=== PATIENT | female | born 1955 | race African-American/Black ===

== ENCOUNTER → 2021-07-18 09:12 | Outpatient (CLI) | payer BC, SELFPAY ==
[2021-07-18 10:28] LABS: PTHIN 188.2 pg/mL (18.4-80.1)
[2021-07-18 10:31] LABS: T3 Total - Triiodothyronine 1.07 ng/mL (0.6-1.81)
[2021-07-18 10:37] LABS: Calcium,Total 9.4 mg/dL (8.5-10.1); Thyroid Stim Hormone (TSH) 0.89 uIU/mL (0.358-3.74)
[2021-07-19 14:04] LABS: Thyroid Peroxidase AB 16 IU/mL (0-34)
== END ==
PROVIDERS: PCP Family Medicine; Referring Provider Physician Assistant; Visit Provider Physician Assistant
DX: L80 Vitiligo (principal)
CPT/HCPCS: 36415; 82310; 83970; 84439; 84443; 84480; 86376

== ENCOUNTER 2022-01-11 10:00 | Emergency (ER) | payer MEDICARE, SELFPAY ==
[2022-01-11 10:01] VITALS: BP 156/87; PULSE 55; RESP 14; TEMP 36.2; O2SAT 98; BMI 34.1
--- NOTE | 2022-01-11 10:20 | EKG12_ITS ---
Test Reason : CP Blood Pressure : / mmHG Vent. Rate : 057 BPM Atrial Rate : 057 BPM P-R Int : 186 ms QRS Dur : 086 ms QT Int : 406 ms P-R-T Axes : 067 045 067 degrees QTc Int : 395 ms Sinus bradycardia Otherwise normal ECG Confirmed by EDUARDO PRATHER, FLII ([id number]), editorial writer JIM PEARSON ([id number]) on 01/13/2022 7:19:55 AM Referred By: PARESH Confirmed By:FAIZA CLARK MD
--- NOTE | 2022-01-11 10:21 | EDS_ITS ---
HPI History of Present Illness Chief Complaint: Chest Pain Narrative Narrative: Patient with past medical history of coronary artery disease, CABG x4 in 2007, hypertension, hypercholesterolemia presents with intermittent chest pain that she has had over the last few days. She presents from her primary care provider's office with report that its been going on for the past 2 weeks. She states she is currently pain-free. She only relates history that she had chest pain across her precordium on Sunday, 2 days ago. She is unsure how long it lasted. She denies any nausea or vomiting. No shortness of breath or diaphoresis. She does not follow-up with a cmv driver and has not for years. She denies any exacerbating or alleviating factors to her chest pain from 2 days ago. [facility] Medical History (Updated 01/11/22 @ 12:06 by Nakul Campo MD) Depression Hyperlipidemia Hypertension Home Medications Metoprolol Tartrate 25 mg PO BID 06/13/15 [History Last Taken 06/30/15 08:30 25] aspirin 81 mg PO DAILY@0800 06/13/15 [History Last Taken Unknown] sertraline 100 mg PO DAILY 06/13/15 [History Last Taken Unknown] amlodipine 1 tab PO DAILY 06/28/15 [History Last Taken Unknown] atorvastatin 10 mg PO QHS 06/28/15 [History Last Taken Unknown] lisinopril-hydrochlorothiazide [Zestoretic 20-12.5 mg Tablet] 1 ea PO BID 06/28/15 [History Last Taken Unknown] bupropion HCl 150 mg PO DAILY 01/11/22 [History Last Taken Unknown] Allergy/AdvReac Type Severity Reaction Status Date / Time No Known Allergies Allergy Verified 01/11/22 10:03 Surgical History (Updated 01/11/22 @ 10:35 by Monik Loredo) Hx of CABG Social History Smoking Status: Unknown if ever smoked ROS ROS ED ROS Narrative Constitutional: No fever, no chills. HEENT: No sore throat. No neck pain. No loss of vision. No rhinorrhea. Cardiovascular: Positive chest pain-resolved. No palpitations. No pedal edema. Respiratory: No cough, no shortness of breath. Abdominal: No abdominal pain. No nausea. No vomiting. Genitourinary: No dysuria. No hematuria. Musculoskeletal: No myalgias. No arthralgias. Neurologic: No headaches. No dizziness. No lightheadedness. Skin: No rash. No change in color. Psychiatric: No depression. No anxiety. EXAM Physical Exam Narrative Exam Narrative: Afebrile. Vital signs noted. HEENT: Normocephalic. Atraumatic. PERRL, EOMI. Neck soft and supple. No point tenderness or step off. Cardiovascular: Regular rate and rhythm. No murmurs, rubs, or gallops appreciated. Respiratory: No tachypnea. Lungs clear to auscultation bilaterally. Gastrointestinal: Abdomen soft, nontender, with normoactive bowel sounds. No rebound or guarding. Neurological: Awake. Alert. Nonfocal, nonlateralizing. Skin: No rash. Normal color. No pallor. Musculoskeletal: No pedal edema. Full range of motion extremities. Const Vital Signs: 01/11/22 10:01 01/11/22 10:23 01/11/22 10:36 Temperature 97.2 F L Temperature Source Temporal Pulse Rate 55 L Respiratory Rate 14 Respiratory Effort Normal Respiratory Pattern Normal Blood Pressure 156/87 H Blood Pressure Mean 110 Pulse Ox 98 Oxygen Delivery Method Room Air Room Air 01/11/22 12:01 Temperature Temperature Source Pulse Rate 69 Respiratory Rate 17 Respiratory Effort Respiratory Pattern Blood Pressure 139/78 H Blood Pressure Mean 98 Pulse Ox 96 Oxygen Delivery Method Room Air Heart Score History: Slightly/Non-Suspicious ECG: Normal Age: >/= 65 years Risk Factors: >/= 3 Risk Factors or History of CAD Score: 4 MDM MDM MDM Narrative Medical decision making narrative: Chest pain work-up was pursued. Her EKG demonstrates normal sinus bradycardia at 57 bpm without ectopy or acute ST changes. She does have T wave inversion in V2. She takes baby aspirin on a daily basis. She is currently pain-free. I do feel that she would more than likely be able to be ruled out by biomarkers as this would be more than a 6-hour troponin. I did visualize an EKG from 2008 she did have T wave inversions in V1 and V2 as she does today. Chest x-ray as interpreted by myself shows no acute process, no pneumothorax or infiltrate. She has a white count of 4.1 which is low but normal hemoglobin of 12.2, normal platelet count of 242. Her electrolyte panel shows chloride elevated at 110 with a creatinine of 1.18 but this is a chronic kidney injury. Glucose appropriately elevated at 109 with a normal anion gap if not slightly low at 4. Her high-sensitivity troponin is normal at 5. She is pain-free and has not had chest pain since Sunday. I was able to speak with her primary care provider, Dr. Tarango. Patient is to follow-up with a new cmv driver and her primary care physician. I feel she be discharged safely home with follow-up. Return instructions were reviewed. Disposition is discharged home in stable condition. Lab Data Attestation: I reviewed the patient's lab results. Labs: Laboratory Results - last 24 hr 01/11/22 01/11/22 10:10 10:10 WBC 4.1 L RBC 4.35 Hgb 12.2 Hct 37.9 MCV 87.1 MCH 28.0 MCHC 32.2 RDW Std Deviation 42.1 RDW Coeff of [place] 13.2 Plt Count 242 MPV 10.3 Immature Gran % (Auto) 0.200 Neut % (Auto) 48.1 Lymph % (Auto) 38.4 [place] % (Auto) 7.5 Eos % (Auto) 4.6 Baso % (Auto) 1.2 H Absolute Neuts (auto) 2.0 Absolute Lymphs (auto) 1.59 Nucleated RBC % 0 Sodium 141 Potassium 4.0 Chloride 110 H Carbon Dioxide 27.0 Anion Gap 4 L BUN 8 Creatinine 1.18 H Estim Creat Clear Calc 41.63 Est GFR (MDRD) Af Amer 59 L Est GFR (MDRD) Non-Af 49 L BUN/Creatinine Ratio 6.8 L Glucose 109 H Calcium 9.6 Troponin I High Sens 5 Radiography Diagnostic Testing: Clinical Impression(s) from Imaging Studies Chest X-Ray 01/11/22 10:35 IMPRESSION: No radiographic evidence of acute cardiopulmonary disease. No interval change. at 1103 Reported and signed by: Tyler Roche MD Electronically Signed: Tyler Roche MD at 11:02 EDT , Discharge Plan Triage Chief Complaint: Chest Pain ED Provider: Nakul Campo Dx/Rx/DC Orders Clinical Impression: Chest pain Instructions: ED Chest Pain, Uncertain Cause Prescriptions: No Action sertraline 100 MG tablet 100 mg PO DAILY RF: 0 aspirin 81 MG tablet,chewable 81 mg PO DAILY@0800 RF: 0 Metoprolol Tartrate 25 mg PO BID RF: 0 atorvastatin 10 MG tablet 10 mg PO QHS RF: 0 lisinopril-hydrochlorothiazide [Zestoretic] 1 EACH tablet 1 ea PO BID RF: 0 amlodipine 10 MG tablet 1 tab PO DAILY RF: 0 bupropion HCl 150 mg tablet extended release 24 hr 150 mg PO DAILY RF: 0 Primary Care Provider: Maria Del Carmen Tarango Referrals: Maria Del Carmen Tarango MD [Primary Care Provider] - 1-2 Days if not improving Activity Restrictions/Additional Instructions: Follow-up with a cmv driver as soon as possible. Disposition Disposition: Home, Self Care
[2022-01-11] MEDS: Aspirin 81 MG TAB.CHEW 324 MG PO (10:24)
[2022-01-11 10:29] LABS: Absolute Lymphocyte Count 1.59 X10^3/uL (0.83-4.51); Basophil# 0.05 X10^3/uL; Basophil% 1.2 % (0-1); Eosinophil# 0.19 X10^3/uL; Eosinophils% 4.6 % (0-5); Hematocrit 37.9 % (37-47); Hemoglobin 12.2 g/dL (12.0-15.0); Lymphocyte # 1.59 X10^3/ul (0.83-4.51); Lymphocyte % 38.4 % (19-41); Mean Corp Hgb Conc 32.2 g/dL (32-36); Mean Corpuscular Volume 87.1 fL (81-99); Mean Platelet Vol. 10.3 fl (6.2-12.0); Monocyte# 0.31 X10^3/uL; Monocyte% 7.5 % (0-10); NRBC Flagged by Analyzer 0 % (0-5); Neutrophil # 1.99 X10^3/uL (2.7-7.7); Neutrophil % 48.1 % (47-70); Platelet Count 242 K/mm3 (150-450); RBC Distribution Width CV 13.2 % (11.6-14.6); RBC Distribution Width SD 42.1 fl (35.1-43.9); Red Blood Count 4.35 M/mm3 (4.2-5.4); White Blood Count 4.1 K/mm3 (4.4-11.0)
--- NOTE | 2022-01-11 10:35 | RAD_ITS ---
History: chest pain EXAMINATION/TECHNIQUE: XR Chest 1 View: Portable COMPARISON: November 14, 2013 FINDINGS: LINES/DEVICES: None. LUNGS: No consolidation, edema or effusion. No pneumothorax. MEDIASTINUM AND CARDIOVASCULAR STRUCTURES: Cardiac silhouette not enlarged. Central airways and mediastinal contour are unremarkable. Sternotomy wires and mediastinal clips noted consistent with changes of CABG. BONES AND SOFT TISSUES: Unremarkable. RAD/Chest 1 View (Portable) IMPRESSION: No radiographic evidence of acute cardiopulmonary disease. No interval change. at 1103 Reported and signed by: Tyler Roche MD Electronically Signed: Tyler Roche MD at 11:02 EDT ,
[2022-01-11 10:56] LABS: Anion Gap 4 (5-15); BUN 8 mg/dL (7-18); BUN/Creat Ratio 6.8 RATIO (10-20); Calcium,Total 9.6 mg/dL (8.5-10.1); Chloride 110 mmol/L (98-107); Creatinine, Serum 1.18 mg/dL (0.55-1.02); EST Glomerular Filtration Rate 49 mL/min (>60); Est Glom Filt Rate - Afr Amer 59 mL/min (>60); Estimated Creatinine Clearance 41.63 ml/min; Glucose 109 mg/dL (74-106); Sodium Level 141 mmol/L (136-145); Troponin-I HS 5 pg/mL (3.0-54.0)
[2022-01-11 12:01] VITALS: BP 139/78; PULSE 69; RESP 17; O2SAT 96
[2022-01-11 12:20] VITALS: BP 139/78; PULSE 69; RESP 16; O2SAT 99
== END 2022-01-11 12:21 | disposition home or self-care (01) ==
PROVIDERS: Emergency Provider Emergency Medicine; PCP Internal Medicine; Visit Provider Emergency Medicine
DX: R07.9 Chest pain, unspecified (principal); R00.1 Bradycardia, unspecified; I10 Essential (primary) hypertension; E78.00 Pure hypercholesterolemia, unspecified; I25.10 Atherosclerotic heart disease of native coronary artery without angina pectoris; E78.5 Hyperlipidemia, unspecified; Z79.82 Long term (current) use of aspirin; Z79.899 Other long term (current) drug therapy; Z95.1 Presence of aortocoronary bypass graft
CPT/HCPCS: 71045; 80048; 84484; 85025; 93005; 99285; A4216

== ENCOUNTER → 2022-04-12 | Outpatient (CLI) | payer MEDICARE, SELFPAY ==
--- NOTE | 2022-04-12 14:35 | NEURO_ITS ---
NCS and/or EMG Patient Report Ordering Doctor: Génesis Woo NP DATE OF SERVICE: 04/12/22 Herlinda presents for electrodiagnostic testing of the right upper limb she reports pain in the right wrist with intermittent numbness in the hand. Electrodiagnostic findings: Right median motor nerve demonstrates normal distal latency and amplitude with borderline reduced conduction velocity. Normal right ulnar motor response, including conduction across the elbow. Median and ulnar ulnar sensory responses are normal. Normal right radial sensory response. On needle EMG, all muscles tested in the right upper limb showed no evidence of denervation with normal motor unit action potentials. Electrodiagnostic impression: This is a normal electrodiagnostic study of the right upper limb. There is no electrodiagnostic evidence for peripheral neuropathy including carpal tunnel or cubital tunnel syndrome. There is no anupam ctrodiagnostic evidence for cervical radiculopathy.
== END | disposition home or self-care (01) ==
LOC: PSN 13:09
PROVIDERS: PCP Internal Medicine; Referring Provider Nurse Practitioner; Visit Provider Nurse Practitioner
DX: M25.531 Pain in right wrist (principal); R20.0 Anesthesia of skin; R20.2 Paresthesia of skin
CPT/HCPCS: 95886; 95910

== ENCOUNTER → 2022-04-18 | Outpatient (CLI) | payer MEDICARE, SELFPAY | END | disposition home or self-care (01) | PROVIDERS: PCP Internal Medicine; Referring Provider Psychiatry & Neurology Sleep Medicine; Visit Provider Psychiatry & Neurology Sleep Medicine | DX: G47.33 Obstructive sleep apnea (adult) (pediatric) (principal) | CPT/HCPCS: 95811 ==

== ENCOUNTER 2023-07-24 12:03 | Emergency (ER) | payer MEDICARE, MEDICAID, SELFPAY ==
[2023-07-24 12:04] VITALS: BP 142/69; PULSE 94; RESP 20; TEMP 36.2; O2SAT 95; BMI 36.6
--- NOTE | 2023-07-24 12:30 | EDS_ITS ---
HPI HPI - URI History of Present Illness Chief Complaint: Cold Sx Informant: patient Onset/Context/Timing Onset: Days Context: Gradual Onset Timing: Continuous Current Severity: Mild Maximum Severity: Mild Associated Symptoms Associated Symptoms: Positive for Nasal Congestion, Myalgias and Productive Cough Narrative Narrative: 67-year-old female history of CABG, hypertension and chronic kidney disease. URI type symptoms for the last 3 days. Productive cough of clear sputum. No chest pain. No hemoptysis. No shortness of breath. No one else at home is currently ill. Prior similar symptoms: Yes Recent Illness/Hospitalization: No ROS ROS ED ROS Narrative Productive cough. Body aches. Review of Systems ROS Unobtainable: Denies due to encephalopathy Constitutional Constitutional ED: Denies chills or fever(s) Eyes Eyes: Denies blurry vision Cardiovascular Cardiovascular: Denies chest pain Respiratory/Chest Respiratory/Chest: Reports cough; Denies dyspnea or dyspnea on exertion Gastrointestinal Gastrointestinal: Denies abdominal pain, constipation, diarrhea, melena, nausea or vomiting Genitourinary Genitourinary ED: Denies dysuria or hematuria Musculoskeletal Musculoskeletal: Reports myalgias; Denies arthralgias Integumentary Denies abscess Neurologic Neurologic: Denies headache(s) Psychiatric Psychiatric: Denies anxiety Endocrine Endocrinology: Denies cold intolerance Hematologic/Lymphatic Hematologic/Lymphatic: Denies easy bleeding or easy bruising Allergic/Immunologic Allergic/Immunologic ED: Denies mouth swelling or tongue swelling PFSH [facility] Medical History Atherosclerosis of coronary artery of [place] heart without angina pectoris Depression Dysthymic disorder Essential hypertension Glaucoma Goiter Hyperlipidemia IBS (irritable bowel syndrome) Kidney disease JEFRY treated with BiPAP Home Medications aspirin 81 mg chewable tablet 81 mg PO DAILY@0800 06/13/15 [History Last Taken Unknown] sertraline 100 mg tablet 100 mg PO DAILY 06/13/15 [History Last Taken Unknown] amlodipine 10 mg tablet 1 tab PO DAILY 06/28/15 [History Last Taken Unknown] bupropion HCl 150 mg 24 hr tablet, extended release 150 mg PO DAILY 01/11/22 [History Last Taken Unknown] atorvastatin 20 mg tablet 20 mg PO QHS 02/12/23 [History Last Taken Unknown] metoprolol tartrate 50 mg tablet 25 mg PO BID 02/12/23 [History Last Taken Unknown] nitroglycerin 0.4 mg sublingual tablet 0.4 mg sublingual Q5-15M PRN chest pain 02/12/23 [History Last Taken Unknown] Allergy/AdvReac Type Severity Reaction Status Date / Time No Known Allergies Allergy Verified 03/28/23 13:22 Family History Mother CVA (cerebral vascular accident) Diabetes Father Diabetes Sister Psoriasis Brain cancer Brother Cancer Diabetes Heart disease Surgical History History of coronary artery bypass surgery (~10/18/08) History of esophagogastroduodenoscopy (EGD) History of left heart catheterization (~10/14/08) History of tubal ligation Social History household members: none housing: house Smoking Status: Former smoker how long ago did patient quit smokin alcohol intake: never substance use type: does not use EXAM Physical Exam Narrative Exam Narrative: 67-year-old female. Vital signs stable afebrile. Pulse ox 95% on room air no hypoxia. HEENT exam unremarkable. Moist mucous veins. Neck nontender no lymphadenopathy. Lungs clear to auscultation bilaterally. No rales, rhonchi or wheezing. Heart regular rate and rhythm no murmur. Abdomen soft nontender. No peritoneal signs. Moving all 4 extremities. Nontender no edema. She is awake and alert. Const Vital Signs: 07/24/23 12:04 07/24/23 12:10 Temperature 97.1 F L Temperature Source Temporal Pulse Rate 94 Respiratory Rate 20 H Respiratory Effort Normal Respiratory Pattern Normal Blood Pressure 142/69 H Blood Pressure Mean 93 Pulse Ox 95 Positive well nourished and well developed; Negative for cachectic or contractures General Appearance ED: well developed and NAD; Negative for cachectic, contractures, cyanotic, diaphoretic or pallor Nutritional Appearance: Negative for cachectic HEENT Reports moist mucous membranes; Denies dry mucous membranes normocephalic and atraumatic; Negative for scalp tenderness Face and Sinus: Negative for sinus tenderness Mouth ED: No dry mucous membranes Mouth: No dry mucous membranes Throat: posterior oropharynx normal Eyes PERRL and EOMs intact bilaterally General Eye ED: Negative for pale conjunctiva or scleral icterus Neck supple, no meningeal signs and no JVD General: Negative for anterior neck swelling or lymphadenopathy Resp normal respiratory effort and clear to auscultation bilaterally Effort and Inspection: Negative for retractions Auscultation: Negative for rales, rhonchi, wheezes or diminished lung sounds Cardio S1 normal heart sound, S2 normal heart sound and no murmurs Rate: regular rate Rhythm: regular rhythm GI non-distended and no masses Inspection: Negative for abdominal distention Auscultation: normoactive bowel sounds Palpation: soft; Negative for tender or guarding Back/Spine no CVA tenderness General Back: Negative for CVA tenderness Cervical Spine: Negative for cervical spine tenderness Thoracic Spine / Upper Back: Negative for thoracic spinal tenderness Lumbar Spine / Lower Back: Negative for lumbar spinal tenderness Sacrum: Negative for tenderness Extremity normal to inspection and full ROM General Extremety ED: Negative for cyanosis or tenderness General Extremity: Negative for cyanosis Neuro oriented x3, CN's II-XII intact bilaterally and no sensory deficits noted Sensorium / Orientation: alert, oriented to person, oriented to place and oriented to time; Negative for orientation impaired, lethargic or stuporous Sensory Exam: No sensory level loss detected Motor Exam: strength 5/5 throughout; Negative for general weakness Psych mental status grossly normal Appearance: Negative for other Attitude: No agitated Mood & Affect: Negative for depressed, anxious or tearful Skin General Skin Exam: Negative for jaundice or pallor Rashes: no rashes Trauma: Negative for abrasion or laceration MDM MDM MDM Narrative Medical decision making narrative: 67-year-old female URI symptoms. Clinically appears to be viral. I do not think there is any need for chest x-ray. She has stable vital signs and her lungs are clear. We discussed the possibility of this being COVID and I see no reason to test her and she is comfortable with that. Symptomatic treatment with Tylenol and fluids. Follow-up if not improving or return if worse. History & Record Review Discussion w/independent historian: Patient and Family Discharge Plan Triage Chief Complaint: Cold Sx ED Provider: Jony Terry Dx/Rx/DC Orders Clinical Impression: Viral URI Instructions: ED URI, Viral, No Abx (Adult) Prescriptions: No Action atorvastatin 20 mg tablet 20 mg PO QHS metoprolol tartrate 50 mg tablet 25 mg PO BID nitroglycerin 0.4 mg tablet, sublingual 0.4 mg sublingual Q5-15M PRN (Reason: chest pain) sertraline 100 MG tablet 100 mg PO DAILY aspirin 81 MG tablet,chewable 81 mg PO DAILY@0800 amlodipine 10 MG tablet 1 tab PO DAILY Patient Comments: bupropion HCl 150 mg tablet extended release 24 hr 150 mg PO DAILY Primary Care Provider: Maria Del Carmen Tarango Referrals: Maria Del Caremn Tarango MD [Primary Care Provider] - 1 Week if not improving Activity Restrictions/Additional Instructions: Plenty of fluids and rest. Tylenol for any fever or body aches. Return or follow-up with your doctor if you are not improving or feeling worse. Disposition Disposition: Home, Self Care
[2023-07-24 12:39] VITALS: RESP 20
== END 2023-07-24 12:47 | disposition home or self-care (01) ==
LOC: ED 12:43
PROVIDERS: Emergency Provider Emergency Medicine; PCP Internal Medicine; Visit Provider Emergency Medicine
DX: J06.9 Acute upper respiratory infection, unspecified (principal); I12.9 Hypertensive chronic kidney disease with stage 1 through stage 4 chronic kidney disease, or unspecified chronic kidney disease; N18.9 Chronic kidney disease, unspecified; I25.10 Atherosclerotic heart disease of native coronary artery without angina pectoris; E78.5 Hyperlipidemia, unspecified; G47.33 Obstructive sleep apnea (adult) (pediatric); Z79.82 Long term (current) use of aspirin; Z79.899 Other long term (current) drug therapy; Z87.891 Personal history of nicotine dependence; Z95.1 Presence of aortocoronary bypass graft
CPT/HCPCS: 99282

== ENCOUNTER 2024-08-03 14:33 | Emergency (ER) | payer MEDICARE, MEDICAID, SELFPAY ==
[2024-08-03 14:34] VITALS: BP 137/78; PULSE 64; RESP 14; TEMP 36.6; O2SAT 99
--- NOTE | 2024-08-03 14:52 | RAD_ITS ---
STUDY: X-RAY - LEFT KNEE REASON FOR EXAM: Female, 68 years old. Pain, decreased range of motion TECHNIQUE: 4 view(s) of the knee. COMPARISON: None. FINDINGS: Normal visualized distal femur. Normal visualized proximal tibia and fibula. Normal proximal tibiofibular articulation. There is mild degenerative arthrosis of the medial femorotibial compartment. Normal lateral femorotibial compartment. Normal patellofemoral articulation. The soft tissue structures are unremarkable. RAD/Knee 4 or More Views IMPRESSION: Medial compartment arthrosis Electronically Signed: Nate Westbrook MD at 15:17 EDT ,
--- NOTE | 2024-08-03 15:28 | ED.VIS.LOWEX ---
HPI History of Present Illness Chief Complaint: Lower Extremity Injury Detail of Chief Complaint: Atraumatic left knee pain for the past several days. Informant: patient Occured/Mechanism Comment: Atraumatic knee pain, complains of swelling Onset/Context/Timing Onset: Days Context: Sudden Onset Timing: Continuous Quality of Pain: Aching Location: Left knee Current Severity: Mild Maximum Severity: Moderate Worsened by: Walking, weightbearing Relieved by: Nothing Associated Symptoms Associated Symptoms: Negative for Parasthesia, Weakness or Loss of Funtion Narrative Narrative: Patient is a 68-year-old woman. She has history of obstructive sleep apnea, coronary disease, essential hypertension, hyperlipidemia status post bypass surgery September 2008 who presents with atraumatic left knee pain. She denies history of gout or pseudogout. She denies paresthesia, anesthesia or motor weakness. She denies fever or chills. She denies recent dental procedure. She denies prior problems with the left knee. She denies symptoms of claudication. Prior similar symptoms: No Recent Illness/Hospitalization: No PFSH PFSH Medical History Kidney disease Dysthymic disorder Goiter IBS (irritable bowel syndrome) JEFRY treated with BiPAP Glaucoma Atherosclerosis of coronary artery of [place] heart without angina pectoris Essential hypertension Hyperlipidemia Depression Home Medications ?Medication ?Instructions ?Recorded ?Last Taken ?Type aspirin 81 mg chewable tablet 81 mg PO DAILY@0800 06/13/15 Unknown History sertraline 100 mg tablet 100 mg PO DAILY 06/13/15 Unknown History amlodipine 10 mg tablet 1 tab PO DAILY 06/28/15 Unknown History bupropion HCl 150 mg 24 hr tablet, 150 mg PO DAILY 01/11/22 Unknown History extended release atorvastatin 20 mg tablet 20 mg PO QHS 02/12/23 Unknown History metoprolol tartrate 50 mg tablet 25 mg PO BID 02/12/23 Unknown History nitroglycerin 0.4 mg sublingual 0.4 mg sublingual Q5-15M PRN chest 02/12/23 Unknown History tablet pain ibuprofen 600 mg tablet 600 mg PO Q6H PRN #20 TABLETS 08/03/24 Unknown Rx Allergy/AdvReac Type Severity Reaction Status Date / Time No Known Allergies Allergy Verified 08/03/24 14:33 Family History Mother CVA (cerebral vascular accident) Diabetes Father Diabetes Sister Psoriasis Brain cancer Brother Cancer Diabetes Heart disease Surgical History History of tubal ligation History of esophagogastroduodenoscopy (EGD) History of left heart catheterization (~10/14/08) History of coronary artery bypass surgery (~10/18/08) Social History household members: none housing: house Smoking Status: Never smoker how long ago did patient quit smokin alcohol intake: never substance use type: does not use ROS ROS ED Constitutional Constitutional ED: Denies chills, fever(s), subjective or sweats Eyes Eyes: Denies blurry vision, change in vision or diplopia Cardiovascular Cardiovascular: Denies chest pain Respiratory/Chest Respiratory/Chest: Denies cough or dyspnea Gastrointestinal Gastrointestinal: Denies nausea or vomiting Genitourinary Genitourinary ED: Denies dysuria, hematuria or urinary frequency Musculoskeletal Musculoskeletal: Reports other Details: Left knee pain with swelling ; Denies arthralgias, back pain, myalgias or neck pain Integumentary Denies rash Neurologic Neurologic: Denies paresthesias or weakness Hematologic/Lymphatic Hematologic/Lymphatic: Denies easy bleeding or easy bruising EXAM Physical Exam Const Vital Signs: 08/03/24 14:34 Temperature 98 F Temperature Source Temporal Pulse Rate 64 Respiratory Rate 14 Blood Pressure 137/78 H Blood Pressure Mean 97 Pulse Ox 99 Oxygen Delivery Method Room Air Positive well nourished and well developed Constitutional Narrative: BMI greater than 30 General Appearance ED: well developed and NAD HEENT normocephalic and atraumatic Eyes PERRL Eyes Narrative: Extract muscles intact. Sclera is anicteric. Resp normal respiratory effort Cardio regular rate and regular rhythm Extremity Negative for normal to inspection or full ROM Extremity Narrative: The left knee is swollen compared to the right. There is no obvious effusion clinically. The patellas not blottable. Patient has pain with varus valgus stress testing; however, there is no laxity. There is no laxity with Geeta's test or click with modified Sandy's test. Patient had pain with both maneuvers. Patient is able to extend and hold against gravity to 180 degrees. She able to flex to about 100 degrees. There is no mass or fullness in the popliteal fossa. DP and PT pulse are palpable. There is no erythema of the skin or warmth. General Extremety ED: Yes weight-bearing difficulty General Extremity: weight-bearing difficulty Neuro oriented x3, CN's II-XII intact bilaterally and moves all extremities Sensorium / Orientation: alert Motor Exam: strength 5/5 throughout Psych mental status grossly normal Skin no wounds Lesions: no lesions Rashes: no rashes MDM MDM MDM Narrative Medical decision making narrative: Differential diagnosis would include crystal induced monoarticular arthritis, pyogenic monoarticular arthritis, osteoarthritis. Will obtain x-ray of the knee. Radiography Chest X-Ray - ED: Read by ED Physician (4 view x-ray of the left knee was independent reviewed interpreted by me at 1527 as negative for any acute pathology. There is evidence of degenerative arthritis. There is no evidence of fracture, subluxation dislocation or free body in the joint. There is no evidence of atherosclerotic changes i) Treatment and Re-Evaluation Narrative: Patient was informed of her results. Patient does not have prior problems with knee and has not seen an orthopedic surgeon. She was referred to Dr. Robison who is on-call. Discharge Plan Triage Chief Complaint: Lower Extremity Injury ED Provider: Ang Flood Dx/Rx/DC Orders Clinical Impression: Osteoarthritis of left knee, JEFRY treated with BiPAP, Hyperlipidemia, Essential hypertension, Difficulty in walking, History of coronary artery disease Instructions: Arthritis: Exercise, Osteoarthritis Knee Prescriptions: New ibuprofen 600 mg tablet 600 mg PO Q6H PRN Qty: 20 0RF No Action atorvastatin 20 mg tablet 20 mg PO QHS metoprolol tartrate 50 mg tablet 25 mg PO BID nitroglycerin 0.4 mg tablet, sublingual 0.4 mg sublingual Q5-15M PRN (Reason: chest pain) sertraline 100 MG tablet 100 mg PO DAILY aspirin 81 MG tablet,chewable 81 mg PO DAILY@0800 amlodipine 10 MG tablet 1 tab PO DAILY Patient Comments: bupropion HCl 150 mg tablet extended release 24 hr 150 mg PO DAILY Primary Care Provider: Maria Del Carmen Tarango Referrals: Maria Del Carmen Tarango MD [Primary Care Provider] - Segun Robison MD [Med Staff - Active Staff] - 1 Week Print Language: Vietnamese Disposition Disposition: Home, Self Care
[2024-08-03] MEDS: Ibuprofen 600 MG Tablet PO (16:11)
== END 2024-08-03 16:42 | disposition home or self-care (01) ==
PROVIDERS: Emergency Provider Emergency Medicine; PCP Internal Medicine; Visit Provider Emergency Medicine
DX: M17.12 Unilateral primary osteoarthritis, left knee (principal); R26.2 Difficulty in walking, not elsewhere classified; G47.33 Obstructive sleep apnea (adult) (pediatric); I10 Essential (primary) hypertension; E78.5 Hyperlipidemia, unspecified; I25.10 Atherosclerotic heart disease of native coronary artery without angina pectoris; Z79.82 Long term (current) use of aspirin; Z79.899 Other long term (current) drug therapy; Z95.1 Presence of aortocoronary bypass graft
CPT/HCPCS: 73564; 99282

== ENCOUNTER 2025-03-25 16:34 | Emergency (ER) | payer MEDICARE, MEDICAID, SELFPAY ==
[2025-03-25 16:35] VITALS: BP 144/70; PULSE 69; RESP 15; TEMP 35.7; O2SAT 97; BMI 37.0
--- NOTE | 2025-03-25 17:23 | CT_ITS ---
PROCEDURE: BRAIN/HEAD WITHOUT CONTRAST 03/25/2025 REASON FOR EXAM: INJURY TECHNIQUE: Head CT without intravenous contrast. Coronal and Sagittal reconstruction series were provided. One or more dose reduction techniques were used (e.g., Automated exposure control, adjustment of the mA and/or kV according to patient size, use of iterative reconstruction technique. RADIATION DOSE SUMMARY: CTDlvol: 44.99 mGy DLP: 779.24 mGycm COMPARISON: None. FINDINGS: Brain: Low density in the periventricular white matter suggests mild chronic small vessel ischemic changes. No evidence of acute hemorrhage or infarction. CSF Spaces: Moderate generalized cerebral atrophy Sinuses/Mastoids: Clear at visualized levels Bones: No evidence of acute skull fracture. Soft tissue swelling overlying the left frontal bone. Absent tunica-biloxi ocular lenses. CT/Brain/Head without Contrast IMPRESSION: NO ACUTE INTRACRANIAL FINDINGS Soft tissue swelling overlying the left frontal bone. Reading Location: [place] [id number]
--- NOTE | 2025-03-25 17:37 | RAD_ITS ---
PROCEDURE: WRIST MIN 3 VIEWS 03/25/2025 REASON FOR EXAM: INJURY TECHNIQUE: 3 view(s) of the left wrist COMPARISON: None FINDINGS: Bones: No visible fracture. No suspicious bone lesion. Joints: Normal alignment. Soft tissues: Soft tissues are unremarkable. Other: RAD/Wrist min 3 Views IMPRESSION: NO ACUTE FRACTURE OR DISLOCATION. If acute hand or wrist trauma is suspected an d initial radiographs are negative or equivocal repeat radiographs in 10-14 days MRI without IV contrast or CT without IV contr ast is usually appropriate as the next imaging study. (ACR Appropriateness Criteria: Acute Hand and Wrist Trauma 2018) Reading Location: [facility]
--- NOTE | 2025-03-25 17:39 | ED.VIS.FALL ---
HPI HPI - Fall History of Present Illness Chief Complaint: Fall Informant: patient and family (Mother) Narrative Narrative: 69-year-old female presenting to the emergency room with head and left wrist injury following a fall. Patient states that she was in [place] at a family's preschool graduation. She states that she tripped on an elevated piece of concrete causing her to fall forward. She notes pain in the left wrist with some swelling when she moves it. She notes hematoma to her forehead and abrasion. No reported loss of consciousness. She notes she ripped her pants around the left knee. She denies any leg symptomology. She denies any neck or back discomfort/pain. No nausea vomiting. She is not on any blood thinners. She does note a baby aspirin therapy. [facility] Medical History Kidney disease Dysthymic disorder Goiter IBS (irritable bowel syndrome) JEFRY treated with BiPAP Glaucoma Atherosclerosis of coronary artery of [place] heart without angina pectoris Essential hypertension Hyperlipidemia Depression Home Medications ?Medication ?Instructions ?Recorded ?Last Taken ?Type aspirin 81 mg chewable tablet 81 mg PO DAILY@0800 06/13/15 Unknown History sertraline 100 mg tablet 100 mg PO DAILY 06/13/15 Unknown History amlodipine 10 mg tablet 1 tab PO DAILY 06/28/15 Unknown History bupropion HCl 150 mg 24 hr tablet, 150 mg PO DAILY 01/11/22 Unknown History extended release atorvastatin 20 mg tablet 20 mg PO QHS 02/12/23 Unknown History metoprolol tartrate 50 mg tablet 25 mg PO BID 02/12/23 Unknown History nitroglycerin 0.4 mg sublingual 0.4 mg sublingual Q5-15M PRN chest 02/12/23 Unknown History tablet pain ibuprofen 600 mg tablet 600 mg PO Q6H PRN #20 TABLETS 08/03/24 Unknown Rx Allergy/AdvReac Type Severity Reaction Status Date / Time No Known Allergies Allergy Verified 03/25/25 16:35 Family History Mother CVA (cerebral vascular accident) Diabetes Father Diabetes Sister Psoriasis Brain cancer Brother Cancer Diabetes Heart disease Surgical History History of tubal ligation History of esophagogastroduodenoscopy (EGD) History of left heart catheterization (~10/14/08) History of coronary artery bypass surgery (~10/18/08) Social History household members: none housing: house Smoking Status: Never smoker how long ago did patient quit smokin alcohol intake: never substance use type: does not use ROS ROS ED Constitutional Constitutional ED: Denies chills or weight loss Eyes Eyes: Denies change in vision or diplopia ENT ENT ED: Denies ear pain, rhinorrhea or sore throat Cardiovascular Cardiovascular: Denies chest pain, orthopnea, palpitations or racing heartbeat Respiratory/Chest Respiratory/Chest: Denies cough, dyspnea or orthopnea Gastrointestinal Gastrointestinal: Denies abdominal pain, diarrhea, nausea or vomiting Genitourinary Genitourinary ED: Denies dysuria, hematuria or urinary frequency Musculoskeletal Musculoskeletal: Reports other Details: Left wrist pain swelling ; Denies arthralgias, back pain, myalgias or neck pain Integumentary Reports Abrasions and other Details: Hematoma ; Denies abscess or rash Neurologic Neurologic: Denies headache(s) or weakness Psychiatric Psychiatric: Denies anxiety, depression, suicidal ideation or suicidal thoughts Endocrine Endocrinology: Denies polydipsia, polyphagia or polyuria Allergic/Immunologic Allergic/Immunologic ED: Denies mouth swelling, tongue swelling or urticaria EXAM Physical Exam Const Vital Signs: 03/25/25 16:35 03/25/25 17:20 03/25/25 18:35 Temperature 96.3 F L 98.6 F Temperature Source Temporal Oral Pulse Rate 69 78 Respiratory Rate 15 16 Respiratory Effort Normal Respiratory Depth Normal Respiratory Pattern Normal Blood Pressure 144/70 H 132/66 H Blood Pressure Mean 94 88 Pulse Ox 97 99 Oxygen Delivery Method Room Air Room Air Room Air 03/25/25 19:05 Temperature 98.6 F Temperature Source Pulse Rate 78 Respiratory Rate 16 Respiratory Effort Respiratory Depth Respiratory Pattern Blood Pressure 132/66 H Blood Pressure Mean 88 Pulse Ox 99 Oxygen Delivery Method Positive well nourished and well developed General Appearance ED: well developed HEENT Reports normocephalic and moist mucous membranes HEENT Narrative: There is a midline forehead hematoma with associated abrasion. There are some mild swelling of the left upper eyelid and periorbital region with associated abrasion. There is no hyphema or subconjunctival hemorrhage. Bony periorbital region does not demonstrate any tenderness or step-offs. Extraocular motions are intact. Eyes PERRL and EOMs intact bilaterally Neck no lymphadenopathy, supple and no JVD Resp normal respiratory effort and clear to auscultation bilaterally Cardio regular rate, regular rhythm and no murmurs GI normal to inspection, nondistended, normoactive bowel sounds and non-tender Palpation: soft Back/Spine no CVA tenderness and normal ROM Extremity Extremity Narrative: Left wrist demonstrates some mild swelling and tenderness to palpation along the bony styloids. Painful supination pronation. No tenderness in the snuffbox. Neurovascular intact. General Extremety ED: Negative for edema General Extremity: Negative for edema Neuro oriented x3 and CN's II-XII intact bilaterally Vicky Coma Scale: document GCS findings Spontaneous Obeys Commands Oriented 15 Sensorium / Orientation: alert Motor Exam: strength 5/5 throughout Psych mental status grossly normal Mood & Affect: Negative for depressed or tearful Skin no rashes or lesions noted and no wounds MDM MDM MDM Narrative Medical decision making narrative: Differential diagnosis includes but skull fracture orbital hematoma intracranial hemorrhage concussion fracture wrist sprain ligamentous injury My independent interpretation plain films of the left wrist demonstrates no acute fracture. CT of the brain was obtained read by radiology reviewed by myself. Patient was given precautions as well as home treatment. Will place her in a Velcro wrist splint for comfort. Tylenol seen recommended. History & Record Review Discussion w/independent historian: Patient and Family Radiography Diagnostic Testing: Clinical Impression(s) from Imaging Studies Brain CT 03/25/25 17:23 IMPRESSION: NO ACUTE INTRACRANIAL FINDINGS Soft tissue swelling overlying the left frontal bone. Reading Location: [id number] Wrist X-Ray 03/25/25 17:37 IMPRESSION: NO ACUTE FRACTURE OR DISLOCATION. If acute hand or wrist trauma is suspected and initial radiographs are negative or equivocal repeat radiographs in 10-14 days MRI without IV contrast or CT without IV contrast is usually appropriate as the next imaging study. (ACR Appropriateness Criteria: Acute Hand and Wrist Trauma 2018) Reading Location: [facility] Discharge Plan Triage Chief Complaint: Fall ED Provider: Kiran Gilbert Dx/Rx/DC Orders Clinical Impression: Traumatic hematoma of forehead, Contusion of face, Left wrist sprain, Fall Instructions: ED Facial Contusion, ED Head Injury (Adult), ED Hematoma, ED Wrist Sprain Prescriptions: No Action atorvastatin 20 mg tablet 20 mg PO QHS metoprolol tartrate 50 mg tablet 25 mg PO BID nitroglycerin 0.4 mg tablet, sublingual 0.4 mg sublingual Q5-15M PRN (Reason: chest pain) sertraline 100 MG tablet 100 mg PO DAILY aspirin 81 MG tablet,chewable 81 mg PO DAILY@0800 amlodipine 10 MG tablet 1 tab PO DAILY Patient Comments: bupropion HCl 150 mg tablet extended release 24 hr 150 mg PO DAILY ibuprofen 600 mg tablet 600 mg PO Q6H PRN Qty: 20 0RF Primary Care Provider: KANCHAN DAO Referrals: KANCHAN DAO, [employer] [Primary Care Provider] - 10-14 Days if not better Activity Restrictions/Additional Instructions: Do expect soreness from the fall. Would recommend ice to the forehead as well as antibiotic ointment 1 time per day. You will most likely develop bruising over the next several days it can persist up to a couple weeks. Print Language: Macedonian Disposition Disposition: Home, Self Care Discharge Date/Time: 03/25/25 19:05
[2025-03-25 18:35] VITALS: BP 132/66; PULSE 78; RESP 16; TEMP 37; O2SAT 99
[2025-03-25 19:05] VITALS: BP 132/66; PULSE 78; RESP 16; TEMP 37; O2SAT 99
== END 2025-03-25 19:05 | disposition home or self-care (01) ==
PROVIDERS: Emergency Provider Emergency Medicine; PCP Nurse Practitioner; Referring Provider Emergency Medicine; Visit Provider Emergency Medicine
DX: S63.502A Unspecified sprain of left wrist, initial encounter (principal); S00.83XA Contusion of other part of head, initial encounter; W18.09XA Striking against other object with subsequent fall, initial encounter; I25.10 Atherosclerotic heart disease of native coronary artery without angina pectoris; I10 Essential (primary) hypertension; E78.5 Hyperlipidemia, unspecified; F32.A Depression, unspecified; Z79.82 Long term (current) use of aspirin; Z79.899 Other long term (current) drug therapy; Z95.1 Presence of aortocoronary bypass graft
CPT/HCPCS: 70450; 73110; 99283

== ENCOUNTER 2025-08-16 11:02 | Emergency (ER) | payer MEDICARE, MEDICAID, SELFPAY ==
[2025-08-16 11:03] VITALS: BP 132/96; PULSE 58; RESP 18; TEMP 36.6; O2SAT 97; BMI 35.4
== END 2025-08-16 15:22 | disposition left against medical advice (07) ==
PROVIDERS: PCP Nurse Practitioner
DX: M25.562 Pain in left knee (principal); Z53.21 Procedure and treatment not carried out due to patient leaving prior to being seen by health care provider
CPT/HCPCS: 73564